=== PATIENT | female | born 1975 | race Caucasian/White ===

== ENCOUNTER → 2019-09-17 16:55 | Outpatient (BNVA) | payer SELFPAY | PROVIDERS: Family Provider Family Medicine; PCP Family Medicine; Visit Provider Nurse Practitioner | DX: R50.9 Fever, unspecified (principal) | CPT/HCPCS: 87804 ==

== ENCOUNTER 2020-10-08 07:15 | Emergency (ER) | payer MEDICAID, SELFPAY ==
[2020-10-08 07:17] VITALS: BP 143/100; PULSE 76; RESP 17; TEMP 36.8; O2SAT 100; BMI 27.4
--- NOTE | 2020-10-08 07:27 | CT_ITS ---
WS: [id number] CT ABDOMEN PELVIS TECHNIQUE: Contrast-enhanced CT of the abdomen and pelvis with coronal and sagittal reformatted image s. CLINICAL INFORMATION: R sided/lower abdominal pain COMPARISON: None. DLP: 907.[address] scans at [facility] use at least one of these dose optimization techniques: automat ed exposure control; mA and/or kV adjustment per patient size (includes targeted exams where dose is matched to clinical indication); or iterative reconstruction. FINDINGS: Mild diffuse fatty infiltration of the liver. Cholecystectomy clips. Normal portal vein and splenic v ein. Hazy groundglass infiltrates in the lung bases. Correlation for viral pneumonia. Adrenal glands are normal. No hydronephrosis. Normal renal parenchymal enhancement. Normal spleen. No rmal GE junction. Normal pancreas. Sigmoid diverticuli. Mild thickening and induration about the sigmoid colon suspicious for mild or ea rly diverticulitis. Recommend correlation for infection. Normal appendix in the right lower quadrant. Incidental small bilateral ovarian cysts. No free fluid in the abdomen or pelvis. Urine distended bl adder. No abdominal or pelvic lymphadenopathy. Disc osteophyte complex L5-S1 with moderate to severe central canal stenosis and bilateral bony foraminal narrowing. CT/CT abdomen pelvis w con* [id number] IMPRESSION: 1. Normal appendix in the right lower quadrant. No evidence of acute appendici tis. 2. Mild thickening of the sigmoid colon suspicious for early or mild diverticu litis. Correlation for infection. 3. No free fluid in the abdomen or pelvis. 4. Hazy groundglass infiltrates in the lung bases. Recommend correlation for v iral pneumonia. 5. Mild diffuse fatty infiltration liver. 6. Disc osteophyte complex L5-S1 with chronic central disc osteophyte protrusi on and moderate to severe central canal stenosis. Moderate bilateral L5-S1 bony foraminal narrowing. This can be followed up with MRI.
--- NOTE | 2020-10-08 07:28 | ED_ITS ---
HPI - Abdominal Pain General: Chief Complaint: Abdominal Pain Stated Complaint: Abd Pain Time Seen by Provider: 10/08/20 07:16 Source: patient Mode of arrival: ambulatory Limitations: no limitations History of Present Illness: HPI narrative: Patient is a 44-year-old female who presents to ED today with complaint of right lower abdominal pain that began last night. Patient states pain has been constant since onset. She is describing feelings of nausea without any episodes of vomiting. She reports normal bowel movements. She has no urinary complaints at this time. She has not been running fevers. LMP is unknown as patient tells me she has sporadic vaginal bleeding and has so for over the past year. She is currently bleeding. She has seen her PCP Dr. Pineda for this. She is not complaining of vaginal discharge or vaginal odor. She denies new sexual partners or concern for STDs. MD elicited complaint: abdominal pain Pertinent past history: none Pain Consistency: constant Location: RLQ Severity: moderate Quality: sharp Radiation: none Migration to: no migration Exacerbating factors: movement Relieving factors: nothing Associated Symptoms: Reports nausea; Denies change in stool character, chills, diarrhea, dysuria, fever(s) and vomiting Review of Systems Const: Denies: fever(s), chills, body aches or fatigue ENMT: Denies: odynophagia Card: Denies: chest pain Resp: Denies: dyspnea GI: Reports: abdominal pain and nausea; Denies: vomiting, diarrhea or change in stool character : Reports: vaginal bleeding and metrorrhagia (chronic); Denies: flank pain, difficulty voiding, dysuria, urinary frequency, urinary urgency, urinary hesitancy, genital pruritis, vaginal odor or vaginal discharge Musc: Denies: neck pain or back pain Skin/Breast: Denies: rash Neuro: Denies: headache(s), numbness in extremities, weakness in extremities or sensory changes Physical Exam Const: COMMON NORMALS: no acute distress, patient oriented x3, no limitations and alert GENERAL APPEARANCE: cooperative ORIENTATION/CONSCIOUSNESS: Yes awake, Yes oriented to person, Yes oriented to place and Yes oriented to time HENMT: COMMON NORMALS: normocephalic and atraumatic HEAD & SCALP: normocephalic and atraumatic Resp: COMMON NORMALS: normal respiratory effort and clear to auscultation bilaterally AUSCULTATION: clear to auscultation bilaterally Cardio: COMMON NORMALS: regular rate and regular rhythm RATE: regular rate RHYTHM: regular rhythm GI: COMMON NORMALS: Normal to inspection, nondistended, normoactive bowel sounds present, Soft to palpation, No hepatosplenomegaly present and no masses PALPATION: Yes Soft to palpation, Yes Tenderness to palpation present (GI) Details: RLQ and Yes No hepatosplenomegaly present : COMMON NORMALS: Yes no CVA tenderness BLADDER/KIDNEY EXAM: Yes no CVA tenderness Back/Pelvis: COMMON NORMALS: no CVA tenderness Extremity: COMMON NORMALS: no calf tenderness and no pedal edema Neuro: COMMON NORMALS: patient oriented x3 SENSORIUM/ORIENTATION: Yes alert , Yes oriented to person, Yes oriented to place and Yes oriented to time Skin: COMMON NORMALS: no rashes or lesions noted GENERAL SKIN EXAM: no rashes or lesions noted Course Vital Signs: Vital signs: Vital Signs Temperature 98.2 F 10/08/20 07:17 Pulse Rate 76 10/08/20 07:17 Respiratory Rate 18 10/08/20 07:38 Blood Pressure 143/100 10/08/20 07:17 Pulse Oximetry 98 10/08/20 07:38 MDM - Abdominal Pain MDM Narrative: Medical decision making narrative: Patient's vital signs are stable. Her lab work is non-concerning at this time. UA showing hematuria which is most likely contaminated from her vaginal bleeding. There are no signs of infection. CT scan showing possible early or mild diverticulitis. She will be treated with Cipro/Flagyl and recommend she follow-up with PCP. She is requesting women's health referral regarding her irregular periods. These were not addressed in the emergency department today as this is a chronic issue for patient. Return to ED precautions given. Lab Data: Labs: Lab Results 10/08/20 10/08/20 10/08/20 Range/Units 07:39 07:39 07:39 WBC 7.3 (4.0-10.0) 10^3/ uL RBC 4.29 (4.1-5.3) 10^6/u L Hgb 13.6 (11.5-15.3) g/dL Hct 41.2 (37.0-47.0) % MCV 96.0 (81-99) fL MCH 31.7 (28.0-34.0) pg MCHC 33.0 (30.0-36.0) g/dL RDW 12.4 (12.1-15.1) % Plt Count 224 (130-400) 10^3/c mm MPV 10.3 (7.4-10.4) fL Neut % (Auto) 58.9 % Lymph % (Auto) 27.8 % [place] % (Auto) 7.5 % Eos % (Auto) 4.5 % Baso % (Auto) 1.0 % Neut # (Auto) 4.33 (1.8-7.7) 10^3/u L Lymph # (Auto) 2.0 (0.8-4.8) 10^3/u L [place] # (Auto) 0.6 (0.2-0.9) 10^3/u L Eos # (Auto) 0.3 (0.0-0.8) 10^3/u L Baso # (Auto) 0.1 (0.0-0.1) 10^3/u L Nucleated RBC % (a uto) 0 % Nucleated RBCs # 0.0 /100WBC Sodium 137 (136-145) mmol/L Potassium 4.2 (3.5-5.1) mmol/L Chloride 104 (98-107) mmol/L Carbon Dioxide 21 L (22-29) mmol/L Anion Gap 16.2 (5-19) BUN 12 (6-20) mg/dL Creatinine 0.8 (0.5-0.9) mg/dL GFR Calculation 78.7 L (90-130) mL/min Glucose 158 H (65-115) mg/dL Calculated Osmolal ity 287 (285-295) mOsm/k g Calcium 9.1 (8.5-10.5) mg/dL Total Bilirubin 0.3 (0.15-1.2) mg/dL AST 15 (0-32) U/L ALT 12 (0-33) U/L Alkaline Phosphata se 107 H (35-105) IU/L Total Protein 7.0 (6.6-8.7) g/dL Albumin 4.1 (3.5-5.2) g/dL Globulin 2.9 (1.3-4.6) g/dL Lipase 39 (13-60) U/L HCG, Qual Negative (Negative) Urine Color (Yellow) Urine Appearance (CLEAR) Urine pH (5-7) Ur Specific Gravit y (1.005-1.030) Urine Protein (Negative) Urine Glucose (UA) (Normal) Urine Ketones (Negative) Urine Blood (Negative) Urine Nitrate (Negative) Urine Bilirubin (Negative) Urine Urobilinogen (Negative) mg/dL Ur Leukocyte [place] ase (Negative) Urine RBC (0-2) /hpf Urine WBC (0-5) /hpf Ur Squamous Epith Cells (0-5) /hpf Amorphous Sediment Urine Bacteria (NONE) /hpf 10/08/20 Range/Units 08:16 WBC (4.0-10.0) 10^3/ uL RBC (4.1-5.3) 10^6/u L Hgb (11.5-15.3) g/dL Hct (37.0-47.0) % MCV (81-99) fL MCH (28.0-34.0) pg MCHC (30.0-36.0) g/dL RDW (12.1-15.1) % Plt Count (130-400) 10^3/c mm MPV (7.4-10.4) fL Neut % (Auto) % Lymph % (Auto) % [place] % (Auto) % Eos % (Auto) % Baso % (Auto) % Neut # (Auto) (1.8-7.7) 10^3/u L Lymph # (Auto) (0.8-4.8) 10^3/u L [place] # (Auto) (0.2-0.9) 10^3/u L Eos # (Auto) (0.0-0.8) 10^3/u L Baso # (Auto) (0.0-0.1) 10^3/u L Nucleated RBC % (a uto) % Nucleated RBCs # /100WBC Sodium (136-145) mmol/L Potassium (3.5-5.1) mmol/L Chloride (98-107) mmol/L Carbon Dioxide (22-29) mmol/L Anion Gap (5-19) BUN (6-20) mg/dL Creatinine (0.5-0.9) mg/dL GFR Calculation (90-130) mL/min Glucose (65-115) mg/dL Calculated Osmolal ity (285-295) mOsm/k g Calcium (8.5-10.5) mg/dL Total Bilirubin (0.15-1.2) mg/dL AST (0-32) U/L ALT (0-33) U/L Alkaline Phosphata se (35-105) IU/L Total Protein (6.6-8.7) g/dL Albumin (3.5-5.2) g/dL Globulin (1.3-4.6) g/dL Lipase (13-60) U/L HCG, Qual (Negative) Urine Color Yellow (Yellow) Urine Appearance Clear (CLEAR) Urine pH 6.5 (5-7) Ur Specific Gravit y 1.005 (1.005-1.030) Urine Protein Neg (Negative) Urine Glucose (UA) Norm (Normal) Urine Ketones Negative (Negative) Urine Blood 2+ H (Negative) Urine Nitrate Negative (Negative) Urine Bilirubin Neg (Negative) Urine Urobilinogen Norm (Negative) mg/dL Ur Leukocyte [place] ase Negative (Negative) Urine RBC None (0-2) /hpf Urine WBC None (0-5) /hpf Ur Squamous Epith Cells 0-4 H (0-5) /hpf Amorphous Sediment Not Reportable Urine Bacteria None (NONE) /hpf Imaging Data ^: CT Abd/Pel: Radiologist's impression: [place] [address] CT Scan Report Signed Patient: Prema Jeronimo Unit #: [id number] : 1975 Age/Sex: 44 / F ADM Date: 10/08/20 Loc: ER Room/Bed: Attending Dr: Ordering Provider/Ordering MD: Zarina Allen Date of Service: 10/08/20 Procedure(s): CT abdomen pelvis w con* [id number] Accession Number(s): [id number] Report Number: [id number] WS: [id number] CT ABDOMEN PELVIS TECHNIQUE: Contrast-enhanced CT of the abdomen and pelvis with coronal and sagittal reformatted images. CLINICAL INFORMATION: R sided/lower abdominal pain COMPARISON: None. DLP: 907.[address] scans at [facility] use at least one of these dose optimization techniques: automated exposure control; mA and/or kV adjustment per patient size (includes targeted exams where dose is matched to clinical indication); or iterative reconstruction. FINDINGS: Mild diffuse fatty infiltration of the liver. Cholecystectomy clips. Normal portal vein and splenic vein. Hazy groundglass infiltrates in the lung bases. Correlation for viral pneumonia. Adrenal glands are normal. No hydronephrosis. Normal renal parenchymal enhancement. Normal spleen. Normal GE junction. Normal pancreas. Sigmoid diverticuli. Mild thickening and induration about the sigmoid colon suspicious for mild or early diverticulitis. Recommend correlation for infection. Normal appendix in th e right lower quadrant. Incidental small bilateral ovarian cysts. No free fluid in the abdomen or pelvis. Urine distended bladder. No abdominal or pelvic lymphadenopathy. Disc osteophyte complex L5-S1 with moderate to severe central canal stenosis and bilateral bony foraminal narrowing. CT/CT abdomen pelvis w con* [id number] IMPRESSION: 1. Normal appendix in the right lower quadrant. No evidence of acute appendicitis. 2. Mild thickening of the sigmoid colon suspicious for early or mild diverticulitis. Correlation for infection. 3. No free fluid in the abdomen or pelvis. 4. Hazy groundglass infiltrates in the lung bases. Recommend correlation for viral pneumonia. 5. Mild diffuse fatty infiltration liver. 6. Disc osteophyte complex L5-S1 with chronic central disc osteophyte protrusion and moderate to severe central canal stenosis. Moderate bilateral L5-S1 bony foraminal narrowing. This can be followed up with MRI. Dictated By: Yony Melo MD Signed By: Yony Melo MD Signed Date/Time: 10/08/20833 DD/ 5 Discharge Plan Discharge Patient Disposition: Home Clinical Impression: Diverticulitis Condition: Stable Prescriptions: New Flagyl 500 mg tablet 500 mg PO BID 7 Days Qty: 14 RF: 0 Cipro 500 mg tablet 500 mg PO Q12H Qty: 14 RF: 0 Discharge Orders: Discharge ED (Routine); Ordered 10/08/20 Ordered By: Zarina Allen Referrals: Jose Antonio Pineda MD [Primary Care Provider] - Patient Instructions: Diverticulitis (ED) Activity Restrictions/Additional Instructions: As discussed please return to the emergency department for severe abdominal pain, repetitive episodes of vomiting, blood in your vomit or bloody diarrhea, fevers, or any other concerns you may have. Case management should contact you to set you up with an appointment for women's health regarding your irregular periods. Coding Level of Care Code ED Water Registrar for Chg Fwd Exam Comprehensive
[2020-10-08 07:38] VITALS: RESP 18; O2SAT 98
[2020-10-08 07:47] LABS: Basophils # 0.1 10^3/uL (0.0-0.1); Eosinophils # 0.3 10^3/uL (0.0-0.8); Eosinophils % 4.5 %; Hematocrit 41.2 % (37.0-47.0); Hemoglobin 13.6 g/dL (11.5-15.3); Lymphocytes % 27.8 %; Mean Corpuscular Hemoglobin 31.7 pg (28.0-34.0); Mean Platelet Volume 10.3 fL (7.4-10.4); Monocytes # 0.6 10^3/uL (0.2-0.9); Monocytes % 7.5 %; Neutrophils # 4.33 10^3/uL (1.8-7.7); Neutrophils % 58.9 %; Nucleated Red Blood Cells % 0 %; Platelet Count 224 10^3/cmm (130-400); Red Blood Count 4.29 10^6/uL (4.1-5.3); Red Cell Distribution Width 12.4 % (12.1-15.1); White Blood Count 7.3 10^3/uL (4.0-10.0)
[2020-10-08 07:58] LABS: HCG, Serum Qual Negative (Negative)
[2020-10-08] MEDS: iohexol 300 mg/mL 100 mL Btl IV (07:58)
[2020-10-08 08:02] LABS: Alanine Aminotransferase 12 U/L (0-33); Albumin Level 4.1 g/dL (3.5-5.2); Alkaline Phosphatase 107 IU/L (35-105); Anion Gap 16.2 (5-19); Aspartate Amino Transferase 15 U/L (0-32); Blood Urea Nitrogen 12 mg/dL (6-20); Calcium 9.1 mg/dL (8.5-10.5); Carbon Dioxide 21 mmol/L (22-29); Chloride 104 mmol/L (98-107); Globulin 2.9 g/dL (1.3-4.6); Glomerular Filtration Rate 78.7 mL/min (90-130); Glucose 158 mg/dL (65-115); Lipase 39 U/L (13-60); Osmolality Calculated 287 mOsm/kg (285-295); Potassium 4.2 mmol/L (3.5-5.1); Sodium 137 mmol/L (136-145); Total Bilirubin 0.3 mg/dL (0.15-1.2)
[2020-10-08 08:47] LABS: Add Urine Microscopic? YES; Bilirubin Urine Neg (Negative); Blood Urine 2+ (Negative); Glucose Urine UA Norm (Normal); Ketones Urine Negative (Negative); Leukocyte Esterase Urine Negative (Negative); Nitrate Urine Negative (Negative); Protein Urine Neg (Negative); Specific Gravity, Urine 1.005 (1.005-1.030); Urine Appearance Clear (CLEAR); Urine Color Yellow (Yellow); Urobilinogen Urine Norm (Negative); pH Urine 6.5 (5-7)
[2020-10-08 08:50] LABS: Add Urine Culture? No; Squamous Epithelial Cell Urine 0-4 /hpf (0-5)
[2020-10-08 09:07] VITALS: BP 135/89; PULSE 72; RESP 17; O2SAT 99
--- NOTE | 2020-10-08 12:18 | DCPLANNER ---
food services manager had message to schedule a follow up appointment for patient with [facility]. food services manager called the ortho clinic, spoke with Cassie, gave clinic patients information. food services manager was told that patients information would be printed and reviewed. Clinic will call patient with appointment information.
--- NOTE | 2020-10-09 07:24 | DCPLANNER ---
Patient has a follow up appointment scheduled for Monday, October 12, 2020 at 2:45 with [facility] [address] Rendon. Clinic will call patient with appointment information.
--- NOTE | 2020-10-12 15:58 | DCPLANNER ---
Patient had follow up appointment scheduled for 10.12.20 with [facility] - patient did attend appointment.
== END 2020-10-08 09:07 | disposition home or self-care (01) ==
PROVIDERS: Emergency Provider Physician Assistant; PCP Family Medicine
DX: K57.92 Diverticulitis of intestine, part unspecified, without perforation or abscess without bleeding (principal)
CPT/HCPCS: 12345; 74177; 80053; 81001; 83690; 84703; 85025; 99282; 99283; Q9967

== ENCOUNTER → 2020-10-12 15:40 | Outpatient (BNVA) | payer MEDICAID, SELFPAY | PROVIDERS: PCP Family Medicine; Visit Provider Obstetrics & Gynecology | DX: N91.5 Oligomenorrhea, unspecified (principal) | CPT/HCPCS: 84146; 84443 ==

== ENCOUNTER → 2020-10-26 10:55 | Outpatient (BNVA) | payer MEDICAID, SELFPAY | PROVIDERS: PCP Family Medicine; Visit Provider Obstetrics & Gynecology | DX: N91.5 Oligomenorrhea, unspecified (principal) | CPT/HCPCS: 82670; 83001; 84402 ==

== ENCOUNTER → 2020-11-02 00:01 | Outpatient (BNVA) | payer MEDICAID, SELFPAY | PROVIDERS: PCP Family Medicine; Visit Provider Obstetrics & Gynecology | DX: Z12.4 Encounter for screening for malignant neoplasm of cervix (principal) | CPT/HCPCS: 88175 ==

== ENCOUNTER → 2020-11-11 10:49 | Outpatient (BNVA) | payer MEDICAID, SELFPAY | PROVIDERS: PCP Family Medicine; Visit Provider Obstetrics & Gynecology | DX: R87.612 Low grade squamous intraepithelial lesion on cytologic smear of cervix (LGSIL) (principal) | CPT/HCPCS: 81025; 88305 ==

== ENCOUNTER 2020-12-10 07:53 | Outpatient (CLI) | payer MEDICAID, SELFPAY ==
--- NOTE | 2020-12-10 08:00 | MM_ITS ---
WS: [id number] BILATERAL DIGITAL SCREENING MAMMOGRAPHY WITH CAD CLINICAL INFORMATION: Z12.39 - Encounter for other screening for malignant neoplasm of breast HISTORY: Screening mammogram. No current complaints. COMPARISON: None. TECHNIQUE: Bilateral CC and MLO views. FINDINGS: Scattered fibroglandular densities bilaterally. Ovoid intramammary lymph node right axillary tail. 1 or 2 tiny calcifications right breast. No suspicious focal mass, asymmetry, calcifications, or fiorella ectural distortion. No evidence of malignancy. MM/[place] [id number] IMPRESSION: BI-RADS: 2-Benign FOLLOW UP: 1 Year Follow-up Recommend return to annual screening mammography.
== END 2020-12-10 07:54 | disposition home or self-care (01) ==
LOC: RADSHAW 07:57
PROVIDERS: PCP Family Medicine; Visit Provider Obstetrics & Gynecology
DX: Z12.31 Encounter for screening mammogram for malignant neoplasm of breast (principal)
CPT/HCPCS: 77067

== ENCOUNTER 2021-12-02 07:37 | Emergency (ER) | payer SELFPAY ==
[2021-12-02 07:49] VITALS: BP 141/81; PULSE 115; RESP 13; TEMP 37.8; O2SAT 99; BMI 27.1
--- NOTE | 2021-12-02 07:59 | ED_ITS ---
HPI - Female Genitourinary General: Chief complaint: Urogenital-Female Stated complaint: Lower back pain with a fevor Time Seen by Provider: 12/02/21 07:46 History of Present Illness: Patient complains about bladder infection symptoms. Says she had a fever now. Denies nausea or vomiting. Said is been going on for couple weeks and now has moved into her left flank area. She has s ome urinary frequency and all oliguria. Has history of low back problems and also polycystic ovary syndrome. [place] any other complaints at this time. Associated symptoms: Deny abdominal pain, headache(s), nausea or vaginal discharge Review of Systems Const: Denies: fever(s), chills or body aches Eyes: Denies: eye discomfort ENMT: Denies: throat pain Card: Denies: chest pain Resp: Denies: dyspnea GI: Denies: abdominal pain, nausea or vomiting : Reports: flank pain, urinary frequency and urinary urgency; Denies: vaginal odor or vaginal discharge Musc: Reports: back pain (Chronic) Skin/Breast: Denies: rash Neuro: Denies: headache(s) Psych: Denies: depression or suicidal ideation PFSH ED PFSH: Medical History Diverticulitis Diagnosed 10/08/2020. Treated with antibiotics. DJD (degenerative joint disease) In back. Surgical History S/P laparoscopic cholecystectomy (~1999) Performed by Dr. Sorensen at [facility] in [place], [place]. Family History Mother Diabetes Hypertension Colon cancer Grandfather CAD (coronary artery disease) Maternal Social History (Updated 11/13/20 @ 19:33 by Mike Rendon MD) Smoking and tobacco status: current every day smoker cigarettes Packs smoked per day: 0.5 [ Other cigarette details: started age 15] and e-cigarettes E- Cigarette Details: vaporizer device E-cig/vape details: Off and on. Alcohol intake: current Physical Exam Const: COMMON NORMALS: no acute distress, patient oriented x3 and alert HENMT: COMMON NORMALS: normocephalic and external ears normal HEAD & SCALP: normocephalic EXTERNAL EAR: Yes external ears normal Eye: COMMON NORMALS: EOMs intact bilaterally Neck/C-Spine: COMMON NORMALS: no JVD Resp: COMMON NORMALS: normal respiratory effort and No use of accessory muscles Cardio: COMMON NORMALS: no JVD GI: INSPECTION: Yes normal to inspection : BLADDER/KIDNEY EXAM: Yes CVA tenderness on the left Back/Pelvis: GENERAL BACK: Yes CVA tenderness Extremity: COMMON NORMALS: normal to inspection and full ROM Neuro: COMMON NORMALS: patient oriented x3 SENSORIUM/ORIENTATION: Yes alert Psych: COMMON NORMALS: mental status grossly normal Skin: COMMON NORMALS: no rashes or lesions noted GENERAL SKIN EXAM: no rashes or lesions noted Course Vital Signs: Vital signs: Vital Signs Temperature 100.0 F H 12/02/21 07:49 Pulse Rate 100 12/02/21 10:48 Respiratory Rate 18 12/02/21 10:48 Blood Pressure 105/73 12/02/21 10:48 Pulse Oximetry 98 12/02/21 10:48 MDM - Female Medical Decision Making Patient presents with UTI symptoms. Clinical and laboratory studies support kidney infection. Patient was given fluids and IV antibiotics follow-up primary care provider. Lab Data : 12/02/21 08:14 12/02/21 08:14 Laboratory Results WBC 10.3 10^3/uL (4.0-10.0) H 12/02/21 08:14 RBC 4.28 10^6/uL (4.1-5.3) 12/02/21 08:14 Hgb 13.5 g/dL (11.5-15.3) 12/02/21 08:14 Hct 40.1 % (37.0-47.0) 12/02/21 08:14 MCV 93.7 fl (81-99) 12/02/21 08:14 MCH 31.5 pg (28.0-34.0) 12/02/21 08:14 MCHC 33.7 g/dL (30.0-36.0) 12/02/21 08:14 RDW 11.9 % (12.1-15.1) L 12/02/21 08:14 Plt Count 231 10^3/cmm (130-400) 12/02/21 08:14 MPV 9.8 fL (7.4-10.4) 12/02/21 08:14 Neut % (Auto) 79.2 % 12/02/21 08:14 Lymph % (Auto) 9.6 % 12/02/21 08:14 [place] % (Auto) 9.4 % 12/02/21 08:14 Eos % (Auto) 0.8 % 12/02/21 08:14 Baso % (Auto) 0.7 % 12/02/21 08:14 Neut # (Auto) 8.17 10^3/uL (1.8-7.7) H 12/02/21 08:14 Lymph # (Auto) 1.0 10^3/uL (0.8-4.8) 12/02/21 08:14 [place] # (Auto) 1.0 10^3/uL (0.2-0.9) H 12/02/21 08:14 Eos # (Auto) 0.1 10^3/uL (0.0-0.8) 12/02/21 08:14 Baso # (Auto) 0.1 10^3/uL (0.0-0.1) 12/02/21 08:14 Nucleated RBC % (auto) 0 % 12/02/21 08:14 Nucleated RBCs # 0.0 /100WBC 12/02/21 08:14 Sodium 137 mmol/L (136-145) 12/02/21 08:14 Potassium 4.7 mmol/L (3.5-5.1) 12/02/21 08:14 Chloride 100 mmol/L (98-107) 12/02/21 08:14 Carbon Dioxide 26 mmol/L (22-29) 12/02/21 08:14 Anion Gap 15.7 (5-19) 12/02/21 08:14 BUN 14 mg/dL (6-20) 12/02/21 08:14 Creatinine 0.7 mg/dL (0.5-0.9) 12/02/21 08:14 GFR Calculation 90.9 mL/min (90-130) 12/02/21 08:14 Glucose 98 mg/dL (65-115) 12/02/21 08:14 Calculated Osmolality 284 mOsm/kg (285-295) L 12/02/21 08:14 Calcium 9.7 mg/dL (8.5-10.5) 12/02/21 08:14 HCG, Qual Negative (Negative) 12/02/21 08:14 Urine Color Yellow (Yellow) 12/02/21 08:14 Urine Appearance Hazy (CLEAR) A 12/02/21 08:14 Urine pH 7 (5-7) 12/02/21 08:14 Ur Specific [place] 1.010 (1.005-1.030) 12/02/21 08:14 Urine Protein Trace (Negative) 12/02/21 08:14 Urine Glucose (UA) Norm (Normal) 12/02/21 08:14 Urine Ketones Negative (Negative) 12/02/21 08:14 Urine Blood Trace (Negative) H 12/02/21 08:14 Urine Nitrate Negative (Negative) 12/02/21 08:14 Urine Bilirubin Neg (Negative) 12/02/21 08:14 Urine Urobilinogen Norm mg/dL (Negative) 12/02/21 08:14 Ur Leukocyte Esterase 2+ (Negative) H 12/02/21 08:14 Urine RBC None /hpf (0-2) 12/02/21 08:14 Urine WBC >100 /hpf (0-5) H 12/02/21 08:14 Ur Squamous Epith Cells Rare /hpf (0-5) 12/02/21 08:14 Amorphous Sediment Not Reportable 12/02/21 08:14 Urine Bacteria 2+ /hpf (NONE) H 12/02/21 08:14 Discharge Plan Discharge Patient Disposition: Home Clinical Impression: Urinary tract infection Condition: Stable Prescriptions: New cephalexin 500 mg capsule 500 mg PO Q8H 7 Days Qty: 21 0RF Zofran 4 mg tablet 4 mg PO Q8H 3 Days Qty: 9 0RF No Action gabapentin 300 mg capsule 300 mg PO DAILY 0RF Discharge Orders: Discharge ED (Routine); Ordered 12/02/21 Ordered By: Irvin Valdez Referrals: Jose Antonio Pineda MD [Primary Care Provider] - Discharge Diet: Usual diet Discharge Activity: Resume usual activity Patient Instructions: Urinary Tract Infection in Women (ED) Activity Restrictions/Additional Instructions: Follow-up with medical provider as directed. Take medications as prescribed. Return to the ER or your medical provider if condition worsens. Please read and understand discharge instructions. If any questions ask please. Follow-up your primary care provider in a few days repeat urine sample make sure infection is cleared. Coding Level of Care Code ED Licensed Embalmer for Chg Fwd Exam Comprehensive
[2021-12-02] MEDS: acetaminophen 500 mg Tablet 1000 MG PO (08:20)
[2021-12-02] MEDS: ketorolac 30 mg/mL INJ IVP (08:23)
[2021-12-02] MEDS: sodium chloride 0.9% 1,000 ML 999 ML IV (08:24)
[2021-12-02 08:33] LABS: Basophils # 0.1 10^3/uL (0.0-0.1); Basophils % 0.7 %; Eosinophils # 0.1 10^3/uL (0.0-0.8); Eosinophils % 0.8 %; Hematocrit 40.1 % (37.0-47.0); Hemoglobin 13.5 g/dL (11.5-15.3); Lymphocytes % 9.6 %; Mean Corpuscular HGB Conc 33.7 g/dL (30.0-36.0); Mean Corpuscular Hemoglobin 31.5 pg (28.0-34.0); Mean Corpuscular Volume 93.7 fl (81-99); Mean Platelet Volume 9.8 fL (7.4-10.4); Monocytes % 9.4 %; Neutrophils # 8.17 10^3/uL (1.8-7.7); Neutrophils % 79.2 %; Nucleated Red Blood Cells % 0 %; Platelet Count 231 10^3/cmm (130-400); Red Blood Count 4.28 10^6/uL (4.1-5.3); Red Cell Distribution Width 11.9 % (12.1-15.1); White Blood Count 10.3 10^3/uL (4.0-10.0)
[2021-12-02 08:40] LABS: HCG Qualitative Urine. Negative (Negative)
[2021-12-02 08:53] LABS: Anion Gap 15.7 (5-19); Blood Urea Nitrogen 14 mg/dL (6-20); Calcium 9.7 mg/dL (8.5-10.5); Carbon Dioxide 26 mmol/L (22-29); Chloride 100 mmol/L (98-107); Glomerular Filtration Rate 90.9 mL/min (90-130); Glucose 98 mg/dL (65-115); Osmolality Calculated 284 mOsm/kg (285-295); Potassium 4.7 mmol/L (3.5-5.1); Sodium 137 mmol/L (136-145)
[2021-12-02 09:16] VITALS: BP 107/63; PULSE 96; O2SAT 100
[2021-12-02 09:34] LABS: Add Urine Microscopic? YES; Bilirubin Urine Neg (Negative); Blood Urine Trace (Negative); Glucose Urine UA Norm (Normal); Ketones Urine Negative (Negative); Leukocyte Esterase Urine 2+ (Negative); Nitrate Urine Negative (Negative); Protein Urine Trace (Negative); Urine Appearance Hazy (CLEAR); Urine Color Yellow (Yellow); Urobilinogen Urine Norm (Negative); pH Urine 7 (5-7)
[2021-12-02 09:42] LABS: Add Urine Culture? Yes; Bacteria Urine 2+ /hpf; Squamous Epithelial Cell Urine RARE /hpf (0-5); WBC Urine >100 /hpf (0-5)
[2021-12-02] MEDS: cefTRIAXone 1,000 MG in sodium chloride 0.9% (plus) 50 ML 100 MG IV (09:49)
[2021-12-02 09:51] VITALS: PULSE 77; O2SAT 96
[2021-12-02 10:48] VITALS: BP 105/73; PULSE 100; RESP 18; O2SAT 98
== END 2021-12-02 10:52 | disposition home or self-care (01) ==
PROVIDERS: Emergency Provider Nurse Practitioner Family; PCP Family Medicine
DX: N39.0 Urinary tract infection, site not specified (principal); F17.210 Nicotine dependence, cigarettes, uncomplicated
CPT/HCPCS: 80048; 81001; 81025; 85025; 87077; 87086; 87186; 96365; 96375; 99284; J0696; J1885; J7030

== ENCOUNTER 2022-01-29 21:51 | Emergency (ER) | payer SELFPAY ==
[2022-01-29 21:59] VITALS: BP 129/85; PULSE 83; RESP 16; TEMP 36.6; O2SAT 100
--- NOTE | 2022-01-29 22:28 | ED_ITS ---
HPI - Skin/Abscess/Foreign Bdy General: Chief complaint: Skin/Abscess/Foreign Body Stated complaint: Absess on Waist line (pubic line) Time Seen by Provider: 01/29/22 22:05 History of Present Illness: Patient is a 46 old female comes to the ED with an abscess on waist. Symptoms started approximately 3 days ago. She first developed a red bump that was little sore on the front left waist right along underwear line. With his past couple days the red bump is gotten larger and more painful. Yesterday it started oozing out purulent drainage. Denies any known cause for lesion denies any past history of MRSA or staph infections. Associated symptoms: Deny chills, fever(s), nausea or vomiting Review of Systems Const: Denies: fever(s), chills or fatigue Eyes: Denies: change in vision or eye discomfort ENMT: Denies: throat pain, odynophagia, nasal discharge or nasal congestion Card: Denies: chest pain, palpitations, edema, swelling of feet/ankles, dyspnea on exertion or orthopnea Resp: Denies: dyspnea, productive cough or non-productive cough GI: Denies: abdominal pain, nausea, vomiting, diarrhea, constipation or hematochezia : Denies: flank pain, dysuria or hematuria Musc: Denies: neck pain, back pain or extremity swelling Skin/Breast: Reports: new lesions (Lesion with erythema and purulent drainage); Denies: rash Neuro: Denies: headache(s), numbness in extremities or weakness in extremities PFS ED PFSH: Medical History Diverticulitis Diagnosed 10/08/2020. Treated with antibiotics. DJD (degenerative joint disease) In back. Surgical History S/P laparoscopic cholecystectomy (~1999) Performed by Dr. Sorensen at [facility] in [place], [place]. Family History Mother Diabetes Hypertension Colon cancer Grandfather CAD (coronary artery disease) Maternal Social History Smoking and tobacco status: current every day smoker cigarettes Packs smoked per day: 0.5 [ Other cigarette details: started age 15] and e-cigarettes E- Cigarette Details: vaporizer device E-cig/vape details: Off and on. Alcohol intake: current Physical Exam Const: COMMON NORMALS: no acute distress, patient oriented x3 and alert HENMT: COMMON NORMALS: normocephalic HEAD & SCALP: normocephalic MOUTH: Normal oral and palatal mucosa present THROAT: posterior oropharynx normal and uvula midline Neck/C-Spine: COMMON NORMALS: supple GENERAL: Yes normal visual inspection Lymph: LYMPHATIC: lymphadenopathy left inguinal single and tender 1 cm Resp: COMMON NORMALS: normal respiratory effort, No retractions, No use of accessory muscles and clear to auscultation bilaterally AUSCULTATION: clear to auscultation bilaterally Cardio: COMMON NORMALS: regular rate, regular rhythm, S1 normal heart sound present, S2 normal heart sound present, No gallops present (Cardio), No clicks present (Cardio), No murmurs present (Cardio) and Peripheral pulses 2+ throughout RATE: regular rate RHYTHM: regular rhythm HEART SOUNDS: S1 normal heart sound present and S2 normal heart sound present PERIPHERAL PULSES: Peripheral pulses 2+ throughout GI: COMMON NORMALS: Normal to inspection, nondistended, normoactive bowel sounds present, Soft to palpation, non-tender and no masses PALPATION: Yes Soft to palpation : COMMON NORMALS: Yes no CVA tenderness BLADDER/KIDNEY EXAM: Yes no CVA tenderness Back/Pelvis: COMMON NORMALS: no CVA tenderness Extremity: COMMON NORMALS: normal to inspection Neuro: COMMON NORMALS: patient oriented x3 and moves all extremities SENSORIUM/ORIENTATION: Yes alert Skin: NARRATIVE SKIN EXAM: Left lower pelvis?small ulcerated lesion with some necrotic skin tissue noted. A little bit of purulent drainage noted as well. Some erythema warmth and tenderness. Findings suggestive of possible spider bite versus abscess. Signs of cellulitis GENERAL SKIN EXAM: dry skin Course Vital Signs: Vital signs: Vital Signs Temperature 97.9 F 01/29/22 23:16 Pulse Rate 79 01/29/22 23:16 Respiratory Rate 16 01/29/22 23:16 Blood Pressure 119/70 01/29/22 23:16 Pulse Oximetry 100 01/29/22 23:16 MDM - Skin/Abscess/Foreign Bdy Medicial Decision Making Patient is a 46-year-old female comes to the ED with skin lesion in the left lower pelvic region. Exam of lesion appears to be more of a spider bite with some developing cellulitis versus an abscess. She has some palpable left inguinal lymph nodes that are tender as well, likely reacting to spider bite. Culture on lesion drainage performed and is pending. Patient was given a dose of clindamycin here in the ED and discharged home with a prescription for clindamycin and pain med. She has an appointment with her PCP this coming Monday for follow-up. Return to ED precautions given. Patient is to agree with plan. Discharge Plan Discharge Patient Disposition: Home Clinical Impression: Spider bite Qualifiers: Encounter type: initial encounter Injury intent: accidental or unintentional Qualified Code(s): T63.301A - Toxic effect of unspecified spider venom, accidental (unintentional), initial encounter Condition: Stable Prescriptions: New clindamycin HCl 150 mg capsule 300 mg PO QID 7 Days Qty: 56 0RF No Action gabapentin 300 mg capsule 300 mg PO DAILY 0RF Discharge Orders: Discharge ED (Routine); Ordered 01/29/22 Ordered By: Rebel Hester Referrals: Jose Antonio Pineda MD [Primary Care Provider] - Discharge Diet: Regular Discharge Activity: Resume usual activity Patient Instructions: Brown Recluse Spider Bite, Opioid Safety Activity Restrictions/Additional Instructions: Follow-up with medical provider as directed at your next scheduled appointment this coming Monday. Keep spider bite area clean daily with soap and water and bandage. Apply triple antibiotic ointment on spider bite daily as well. Take medications as prescribed. Return to the ER or your medical provider if condition worsens. Please read and understand discharge instructions. Thank you for choosing [facility] for your healthcare needs today. Please realize this is an emergency room and that we are providing you with a medical screening exam and this may not be complete and all inclusive of all the testing and or work up that you may need to determine your ailment or severity of your illness. It is very important that you follow up as instructed or that you return to the Emergency Department should you have concerns or if your condition changes or worsens in any way. Coding Level of Care Code ED Corporate Accounting Manager for [facility]
[2022-01-29 23:16] VITALS: BP 119/70; PULSE 79; RESP 16; TEMP 36.6; O2SAT 100
[2022-01-29] MEDS: HYDROcodone-acetaminophen 7.5-325 mg Tablet 1 TAB PO (23:16)
[2022-01-29] MEDS: clindamycin 150 mg Capsule 300 MG PO (23:16)
== END 2022-01-29 23:18 | disposition home or self-care (01) ==
PROVIDERS: Emergency Provider Physician Assistant; PCP Family Medicine
DX: T63.301A Toxic effect of unspecified spider venom, accidental (unintentional), initial encounter (principal)
CPT/HCPCS: 87070; 87075; 87077; 87186; 87205; 99283

== ENCOUNTER → 2024-07-24 08:23 | Outpatient (BNVA) | payer SELFPAY | PROVIDERS: PCP Family Medicine | DX: R50.9 Fever, unspecified (principal) | CPT/HCPCS: 87400; 87426; 87880 ==